=== PATIENT | male | born 1980 | race Caucasian/White ===

== ENCOUNTER 2017-10-16 08:22 | Emergency (ER) | END 2017-10-16 11:49 | disposition home or self-care (01) ==

== ENCOUNTER 2019-04-13 21:17 | Emergency (ER) | payer SELFPAY ==
[~2019-04-13] VITALS: Ht 170.2 cm; Wt 81.3 kg
[~2019-04-13 21:17] MED LIST: HYDR-4011 PO; IBUP-1542 PO; NAPR-985 PO; TAMS-14 PO
[2019-04-13 21:26] VITALS: Ht 170.2 cm; Wt 81.3 kg
[2019-04-13] MEDS ORDERED: KETOROLAC 30 MG INJ IV STA (23:34)
[2019-04-14 02:13] VITALS: BP 96/62; PULSE 60; RESP 23
== END 2019-04-14 02:28 | disposition home or self-care (01) ==
LOC: E/R 21:17
DX: R10.9 Unspecified abdominal pain (principal)
CPT/HCPCS: 36415; 80053; 81003; 83690; 85025; 96374; 99284; J1885